=== PATIENT | female | born 1995 | race Caucasian/White ===

== ENCOUNTER 2018-01-16 23:10 | Emergency (ER) | payer MEDICARE ==
[~2018-01-16] VITALS: Ht 157.5 cm; Wt 75.9 kg
[2018-01-16 23:10] VITALS: BP 159/87
[2018-01-17] MEDS: NACL 0.9% 1,000 ML IV ONE (01:57)
[2018-01-17] MEDS: ONDANSETRON 4 MG/2 ML VIAL IVP ONE (01:58)
[2018-01-17 04:00] VITALS: BP 123/73
== END 2018-01-17 04:00 | disposition home or self-care (01) ==
LOC: MED 23:10
DX: A08.4 Viral intestinal infection, unspecified (principal)
CPT/HCPCS: 81002; 81025; 96361; 96374; 99283; J2405; J7030

== ENCOUNTER 2023-12-01 07:07 | Emergency (ER) | payer BC, MEDICARE ==
[~2023-12-01] VITALS: Ht 165.1 cm; Wt 80.4 kg
[2023-12-01 07:22] VITALS: BP 140/78; PULSE 65; RESP 18; TEMP 98.3; O2SAT 98
[2023-12-01] MEDS: ONDANSETRON 4 MG ODT PO ONE (08:01)
[2023-12-01] MEDS: FAMOTIDINE 20 MG TAB PO ONE (08:01)
[2023-12-01 08:53] LABS: APPEARANCE,URINE CLEAR (CLEAR); BILIRUBIN,URINE NEGATIVE (NEGATIVE); BLOOD, URINE NEGATIVE (NEGATIVE); COLOR,URINE YELLOW (YELLOW); LEUKOCYTE ESTERASE ,URINE NEGATIVE (NEGATIVE); NITRITE, URINE NEGATIVE (NEGATIVE); PH,URINE 8.5 (5.0-9.0); PROTEIN,URINE NEGATIVE (NEGATIVE); UGLUCOSE NEGATIVE (NEGATIVE)
[2023-12-01 09:25] LABS: BASOPHILS % (AUTO) 0.9 % (0.0-2.0); HEMOGLOBIN 13.4 g/dL (12.0-16.0); LYMPHOCYTES # (AUTO) 1.2 K/uL (2.5-16.5); LYMPHOCYTES % (AUTO) 22.3 % (20.5-51.1); MEAN CORPUSCULAR HEMOGLOBIN 31 pg (27-31); MEAN CORPUSCULAR HGB CONC 34 g/dL (33-37); MEAN CORPUSCULAR VOLUME 93.1 fL (80-94); MONOCYTES # (AUTO) 0.2 K/uL (0.8-1.0); MONOCYTES % (AUTO) 3.4 % (1.7-9.3); NEUTROPHILS # (AUTO) 3.9 K/uL (1.8-7.7); NEUTROPHILS % (AUTO) 73.4 % (42.2-75.2); PLATELET COUNT (AUTO) 272 K/uL (140-450); RED BLOOD CELL COUNT(AUTO) 4.29 MIL/uL (4.20-5.40); RED CELL DISTRIBUTION WIDTH 13.3 % (11.6-13.7); WHITE BLOOD COUNT (AUTO) 5.3 K/uL (4.8-10.8)
[2023-12-01 09:35] LABS: ANION GAP 10.6 (8-16); CALCIUM 8.8 mg/dL (8.5-10.1); CARBON DIOXIDE 27.7 mmol/L (21-32); CREATININE 0.8 mg/dL (0.6-1.3); POTASSIUM 4.3 mmol/L (3.5-5.1)
[2023-12-01 09:42] LABS: ALBUMIN 3.6 g/dL (3.4-5.0); BILIRUBIN,DIRECT 0.1 mg/dL (0.0-0.3); TOTAL BILIRUBIN 0.3 mg/dL (0.0-1.0); TOTAL PROTEIN, SERUM 7.6 g/dL (6.4-8.2)
[2023-12-01] MEDS ORDERED: FAMO-92 PO (10:02)
[2023-12-01] MEDS ORDERED: ONDA-188 PO (10:02)
[2023-12-01 10:22] VITALS: BP 140/78; PULSE 65; RESP 18; TEMP 98.3; O2SAT 98
== END 2023-12-01 10:22 | disposition home or self-care (01) ==
LOC: MED 07:07
DX: K29.70 Gastritis, unspecified, without bleeding (principal); K21.9 Gastro-esophageal reflux disease without esophagitis; Z79.899 Other long term (current) drug therapy
CPT/HCPCS: 36415; 80048; 80076; 81003; 81025; 83690; 85025; 99283; Q0162